=== PATIENT | male | born 1980 | race Caucasian/White ===

== ENCOUNTER 2019-07-20 13:55 | Emergency (ER) | payer BC, SELFPAY ==
--- NOTE | ~2019-07-20 | XR_ITS ---
XR abdomen/kub 1V 07/20/2019 16:04 Indication: Ureteral stone. Left flank pain. Procedure: KUB Comparison: CT dated 07/20/2019 Findings: Small distal left ureteral stone is identified, partially obscured by the sacrum. Bowel pat tern is nonobstructive. No acute osseous abnormality. Impression: 1: Distal left ureteral stone partially obscured by the sacrum. Reviewed, dictated and finalized at location A. Impression: 1: Distal left ureteral stone partially obscured by the sacrum.
--- NOTE | ~2019-07-20 | CT_ITS ---
EXAMINATION: CT abdomen pelvis wo con DATE: 07/20/2019 14:24 INDICATION: Left flank pain. Low back pain. TECHNIQUE: Computed tomography (CT) of the abdomen and pelvis was performed without intravenous contr ast. Automated exposure control and iterative reconstruction technique were employed. Exam dose: 110 1.81 mGy-cm total exam DLP. COMPARISON: None. FINDINGS: There is an approximately 4 mm left ureterovesical junction calculus with mild left hydrour eteronephrosis. No other urinary tract calculus and no right hydroureteronephrosis is detected. Hepatic steatosis. No hepatic, splenic, pancreatic, and adrenal space-occupying mass lesion. Probable approximately 6 cm right renal cyst. The gallbladder is present. No bile duct or pancreatic duct dilatation. Normal caliber of the abdominal aorta. No intraperitoneal or retroperitoneal or pelvic mass lesion or adenopathy or ascites. Normal appendix. Mild colonic diverticulosis. No CT evidence of diverticulitis. No bowel obstruction or intraperitonea l free air. Very small fat-containing umbilical hernia. Bilateral fat-containing inguinal hernias. Hemangioma of T12 vertebral body. IMPRESSION: 4 mm left ureterovesical junction calculus with mild left hydroureteronephrosis Hepatic steatosis Right renal cyst Mild colonic diverticulosis Reviewed, dictated and finalized at Location A. Reviewed, dictated and finalized at location A. IMPRESSION: 4 mm left ureterovesical junction calculus with mild left hydroure teronephrosis Hepatic steatosis Right renal cyst Mild colonic diverticulosis
[2019-07-20 14:00] VITALS: BP 137/90; PULSE 93; RESP 16; TEMP 36.1; O2SAT 97
--- NOTE | 2019-07-20 14:03 | ED.ABDPAIN ---
HPI - Abdominal Pain General Chief Complaint: Abdominal Pain Stated Complaint: left flank pain Time Seen by Provider: 07/20/19 13:59 Source: patient and RN notes reviewed Mode of arrival: other Limitations: no limitations History of Present Illness HPI narrative: Pt is a 39 y/o male who presents to the ED with c/o 10/10 sharp stabbing left flank pain that began this morning. Pt has a hx of kidney stones and he states that his pain is very similar to his episode of kidney stones. Pt took Tylenol this morning, but with no relief. Pt denies any aggravating factors. Pt also reports decreased urine output, but denies vomiting, hematuria, fever, chills, cough, and a sore throat. MD elicited complaint: flank pain Pertinent past history: kidney stones Onset (ago): hour(s) Pain Consistency: constant Location: L flank Severity: severe Pain scale (0-10): 10 Quality: stabbing and sharp Radiation: none Migration to: no migration Exacerbating factors: nothing Relieving factors: nothing Context: confirms history of similar episodes Associated symptoms: other (decreased urine output) Treatments prior to arrival: other (Tylenol) Related Data Allergies Allergy/AdvReac Type Severity Reaction Status Date / Time No Known Allergies Allergy Verified 07/20/19 14:06 Review of Systems Review of Systems: All systems reviewed & are unremarkable except as noted in HPI and below Constitutional: Constitutional: Denies chills and Denies fever(s) ENT: Denies sore throat Respiratory: Respiratory: Denies cough Gastrointestinal: Gastrointestinal: Denies vomiting Genitourinary: Genitourinary: Denies hematuria, Reports oliguria, Reports flank pain (left) and Reports other [facility] Past Medical History Medical History (Updated 07/21/19 @ 00:00 by Seth Villalpando) Kidney stone Surgical History Surgical History (Updated 07/20/19 @ 14:12 by Chrissy Stinson) Surgical history unknown Social History Social History Gender identity (if verbalized by the patient): Male Exam Const: General: no acute distress and well developed Orientation/consciousness: oriented to person, oriented to place, oriented to time and patient oriented x3 HENMT: Head: normocephalic Ears: external ears normal General nose exam: Normal external nose present Eyes: General: appearance normal, both eyes and all related structures Conjunctivae: conjunctivae normal Neck: Neck: normal visual inspection and full ROM Chest: Chest palpation & inspection: normal inspection of the chest and no tenderness Resp: Effort & Inspection: normal respiratory effort Auscultation: clear to auscultation bilaterally Cardio: Rate: regular rate Rhythm: regular rhythm GI: GI Palp: No abdominal tenderness and Yes Soft to palpation Skin: General skin exam: normal color and turgor normal Neuro: General: oriented to person, oriented to place, oriented to time and patient oriented x3 Cognition (Neuro): normal cognition Extrem: General: normal to inspection, full ROM and no pedal edema Psych: Appearance: grossly normal Mental Status: mental status grossly normal Affect: normal affect Course Vital Signs Vital signs: Vital Signs Temperature 36.1 C L 07/20/19 14:00 Pulse Rate 93 07/20/19 14:00 Respiratory Rate 16 07/20/19 14:00 Blood Pressure 137/90 07/20/19 14:00 Pulse Oximetry 97 07/20/19 14:00 Temperature 36.1 C L 07/20/19 14:00 Pulse Rate 81 07/20/19 17:28 Respiratory Rate 18 07/20/19 17:28 Blood Pressure 134/81 07/20/19 17:28 Pulse Oximetry 97 07/20/19 17:28 MDM - Abdominal Pain Lab Data Result diagrams: 07/20/19 14:32 07/20/19 14:32 Labs: Lab Results 07/20/19 07/20/19 07/20/19 Range/Units 14:32 14:32 16:21 WBC 9.5 (4.5-10.0) K/mm3 RBC 5.25 (4.6-6.20) M/mm3 Hgb 15.5 (14.0-18.0) g/dL Hct 46.1 (42.0-52.0) % MCV 87.8 (80-100) fl MCH 29.5 (26-34) pg MCHC 33.6
--- NOTE | 2019-07-20 14:17 | PC.NURSE ---
Pt taken to CT at this time
[2019-07-20 14:48] LABS: Basophils Absolute Auto 0.1 K/mm3 (0.0-0.1); Basophils Percent Auto 0.6 % (0.2-1.2); Eosinophils Percent Auto 0.3 % (0-4.4); Hematocrit 46.1 % (42.0-52.0); Hemoglobin 15.5 g/dL (14.0-18.0); Immature Granulocyte Absolute 0.04 K/mm3 (0.00-0.031); Immature Granulocyte Percent A 0.4 % (0-0.5); Lymphocytes Absolute Auto 1.17 K/mm3 (0.9-3.2); Lymphocytes Percent Auto 12.3 % (18.3-44.2); Mean Corpuscular HGB Conc 33.6 g/dl (32-36); Mean Corpuscular Hemoglobin 29.5 pg (26-34); Mean Corpuscular Volume 87.8 fl (80-100); Mean Platelet Volume 10.8 fl (7.4-10.4); Monocytes Absolute Auto 0.4 K/mm3 (0.1-0.6); Monocytes Percent Auto 4.6 % (2.6-8.5); Neutrophils Absolute Auto 7.8 K/mm3 (1.3-6.7); Neutrophils Percent Auto 81.8 % (45.5-73.1); Platelet Count Result 181 k/mm3 (150-375); Red Blood Count 5.25 M/mm3 (4.6-6.20); Red Cell Distribution Width 12.8 % (11.5-14.5); White Blood Count 9.5 K/mm3 (4.5-10.0)
[2019-07-20 14:58] LABS: Alanine Aminotransferase 44 U/L (4-50); Albumin Level 4.2 g/dL (3.5-5.1); Alkaline Phosphatase 69 U/L (38-126); Aspartate Amino Transferase 36 U/L (17-59); Bilirubin,Total 1.4 mg/dL (0.2-1.3); Blood Urea Nitrogen 21 mg/dL (9-20); Calcium 9.2 mg/dL (8.4-10.2); Carbon Dioxide 24 mmol/L (22-30); Chloride 106 mmol/L (98-107); Estimated CRCL calculation 94 ml/min; Estimated Glomerular Filt Rate > 60; Glucose 117 mg/dL (75-110); Potassium 4.3 mmol/L (3.4-5.0); Sodium 138 mmol/L (137-145)
[2019-07-20] MEDS: KETOROLAC 30 MG/ML VIAL (*BKC) IV PUSH (15:04)
[2019-07-20] MEDS: SODIUM CHLORIDE 0.9% IV 1,000 ML 999 ML IV CONT (15:04)
[2019-07-20 16:28] LABS: Add Urine Microscopic? YES; Appearance Urine Clear (Clear); Bacteria Urine Trace /hpf; Bilirubin Urine Negative (Negative); Blood Urine 1+ (Negative); Color Urine Yellow (Yellow); Glucose Urine UA Negative (Negative); Ketones Urine Negative (Negative); Leukocyte Esterase Ur Negative LEU/UL (Negative); Mucus Urine Rare /lpf; Nitrate Urine Negative (Negative); Protein Urine Negative (Negative); RBC Urine 21-50 /hpf (0-2); Specific Grav Ur 1.027 (1.001-1.035); Squamous Epithelial Cell Urine Rare /hpf (Few); Urobilinogen Urine Negative mg/dL (<2.0); WBC Urine 0-3 /hpf
[2019-07-20 17:28] VITALS: BP 134/81; PULSE 81; RESP 18; O2SAT 97
== END 2019-07-20 17:28 | disposition home or self-care (01) ==
PROVIDERS: Emergency Provider Emergency Medicine
DX: N20.1 Calculus of ureter (principal); K57.30 Diverticulosis of large intestine without perforation or abscess without bleeding; K76.0 Fatty (change of) liver, not elsewhere classified
CPT/HCPCS: 36415; 74018; 74176; 80053; 81001; 85025; 96361; 96374; 96375; 99284; J1885; J3010; J7030

== ENCOUNTER 2025-02-19 18:46 | Emergency (ER) | payer BC, SELFPAY ==
--- NOTE | ~2025-02-19 | CT_ITS ---
CT ABDOMEN AND PELVIS WITHOUT CONTRAST Clinical History: R/O kidney stone Comparison: CT 07/20/2019 Technique: Unenhanced axial images lung bases to symphysis pubis Coronal, sagittal reformats CT images acquired with automatic exposure control for dose reduction DLP: 332 mGy-cm Findings: Without intravenous contrast, sensitivity for detecting visceral parenchymal abnormalities decreased. Lung bases: Clear. Visualized heart and pericardium: Unremarkable. Liver: Steatosis. Gallbladder: Unremarkable. Spleen: Unremarkable. Pancreas: Unremarkable. Adrenal glands: Unremarkable. Kidneys: Right kidney- Hydronephrosis. Tiny intrarenal stones. 5 mm stone distal ureter. Cortical cyst. Left kidney- No hydronephrosis. No renal stones. Distal esophagus/stomach: Small hiatal hernia. Small bowel loops: Normal caliber and wall thickness. Colon: A few diverticula. Normal caliber and wall thickness. Normal RLQ appendix. Nodes: No enlarged nodes. Peritoneum: No ascites. No free intraperitoneal air. Urinary bladder: Unremarkable. Prostate: Unremarkable. Bones: No acute bony abnormality. T12 hemangioma. Soft tissues: Small inguinal hernias with fat. Unopacified abdominal aorta: No aneurysmal dilatation. IMPRESSION: 1. Right kidney hydronephrosis due to distal ureteral 5 mm stone. 2. Additional findings as above. Reviewed, dictated and finalized at location R.
[2025-02-19 19:27] VITALS: BP 151/87; PULSE 60; RESP 18; TEMP 36.6; O2SAT 98
[2025-02-19 23:57] VITALS: BP 112/69; PULSE 81; RESP 20; TEMP 36.8; O2SAT 98
[2025-02-20] VITALS (15 sets, daily range): BP systolic 123–128; BP diastolic 83–92; PULSE 64–90; RESP 0–24; O2SAT 91–97
--- NOTE | 2025-02-20 00:33 | ED.BACK ---
HPI - Back Pain/Injury General Chief Complaint: Back Pain/Injury <Stephanie Heath APRN - Last Filed: 02/20/25 02:46> Stated Complaint: R FLANK/ABD PAIN SINCE 1814 TODAY <Stephanie Heath APRN - Last Filed: 02/20/25 02:46> Time Seen by Provider: 02/20/25 00:11 <Stephanie Heath APRN - Last Filed: 02/20/25 02:46> History of Present Illness HPI Narrative: Patient is a 44-year-old male who presents to the ER with complaints of right flank pain. He reports he started experiencing this pain approximately 3 weeks ago. Patient reports he was trying to ignore it but today it worsened. He reports he has a history of kidney stones with his last one being 7 years ago. Patient denies any other medical history relevant to this ER visit. He endorses intermittent abdominal pain when he feels the stone move. Patient denies any urinary symptoms, recent fevers, or hematuria. <Stephanie Heath APRN - Last Filed: 02/20/25 02:46> Related Data Allergies/Adverse Reactions: Allergies Allergy/AdvReac Type Severity Reaction Status Date / Time No Known Allergies Allergy Verified 02/19/25 19:30 <Stephanie Heath APRN - Last Filed: 02/20/25 02:46> Review of Systems Review of Systems: All systems reviewed & are unremarkable except as noted in HPI and below <Stephanie Heath APRN - Last Filed: 02/20/25 02:46> [facility] Past Medical History Medical History: Medical History Kidney stone <Stephanie Heath APRN - Last Filed: 02/20/25 02:46> Surgical History Surgical History: Surgical History Surgical history unknown <Stephanie Heath APRN - Last Filed: 02/20/25 02:46> Social History Social History: Social History Gender identity (if verbalized by the patient): Male <Stephanie Heath FIELD OPERATIONS SUPERVISOR - Last Filed: 02/20/25 02:46> Exam Narrative: GENERAL: Well appearing, well-nourished, non-toxic, in no acute distress. HEAD: Normocephalic, atraumatic. NECK: Supple. No adenopathy, no masses. RESPIRATORY: Airway patent, respirations nonlabored. Clear to auscultation bilaterally, no rales, rhonchi, wheezing. CARDIOVASCULAR: Regular rate and rhythm without murmurs, rubs, or gallops. Peripheral pulses 2+ and equal bilaterally. + right CVA tenderness ABDOMINAL: Soft, nontender, nondistended, no hepatosplenomegaly. Normoactive BS. MUSCULOSKELETAL: Moves all extremities. Strength/ROM intact without gross deformities. SKIN: Warm, dry, normal color. No rashes. NEURO: A&O X3. Speech clear. Cranial nerves II-XII intact. No ataxic movements. PSYCHIATRIC: Appropriate mood and affect. Normal interaction. <Stephanie Heath, FIELD OPERATIONS SUPERVISOR - Last Filed: 02/20/25 02:46> Course Vital Signs Vital signs: Vital Signs Temperature 97.8 F 02/19/25 19:27 Pulse Rate 60 02/19/25 19:27 Respiratory Rate 18 02/19/25 19:27 Blood Pressure 151/87 H 02/19/25 19:27 Pulse Oximetry 98 02/19/25 19:27 Oxygen Delivery Room Air 02/19/25 19:27 Temperature 98.3 F 02/19/25 23:57 Pulse Rate 81 02/19/25 23:57 Respiratory Rate 20 02/19/25 23:57 Blood Pressure 112/69 02/19/25 23:57 Pulse Oximetry 98 02/19/25 23:57 Oxygen Delivery Room Air 02/19/25 19:27 <Stephanie Heath, FIELD OPERATIONS SUPERVISOR - Last Filed: 02/20/25 02:46> Vital Signs Temperature 97.8 F 02/19/25 19:27 Pulse Rate 60 02/19/25 19:27 Respiratory Rate 18 02/19/25 19:27 Blood Pressure 151/87 H 02/19/25 19:27 Pulse Oximetry 98 02/19/25 19:27 Oxygen Delivery Room Air 02/19/25 19:27 Temperature 98.3 F 02/19/25 23:57 Pulse Rate 81 02/19/25 23:57 Respiratory Rate 20 02/19/25 23:57 Blood Pressure 112/69 02/19/25 23:57 Pulse Oximetry 98 02/19/25 23:57 Oxygen Delivery Room Air 02/19/25 19:27 <Long Thornton, - Last Filed: 02/20/25 03:01> MDM - Back Pain/Injury MDM Narrative Medical decision making narrative: Patient is a 44-year-old male who presents to the ER with complaints of right flank pain. He reports he started experiencing this pain approximately 3 weeks ago. Patient reports he was trying to ignore it but today it worsened. He reports he has a history of kidney stones with his last one being 7 years ago. Patient denies any other medical history relevant to this ER visit. He endorses intermittent abdominal pain when he feels the stone move. Patient denies any urinary symptoms, recent fevers, or hematuria. Labs Ordered: CBC, CMP, UA Imaging Ordered: CT abdomen pelvis Medications Ordered: 1 L normal saline IV bolus, Zofran 4 mg IV, morphine 4 mg IV 0300-Care signed out to Dr. Thornton pending CT scan results. <Stephanie Heath, FIELD OPERATIONS SUPERVISOR - Last Filed: 02/20/25 02:46> Patient is a 44-year-old male who presents to the ER with complaints of right flank pain. He reports he started experiencing this pain approximately 3 weeks ago. Patient reports he was trying to ignore it but today it worsened. He reports he has a history of kidney stones with his last one being 7 years ago. Patient denies any other medical history relevant to this ER visit. He endorses intermittent abdominal pain when he feels the stone move. Patient denies any urinary symptoms, recent fevers, or hematuria. Labs Ordered: CBC, CMP, UA Imaging Ordered: CT abdomen pelvis Medications Ordered: 1 L normal saline IV bolus, Zofran 4 mg IV, morphine 4 mg IV Results: Diagnosis: Risks: HEART score, PECARN score, CURB-65 score Consults: CT abdomen pelvis without contrast reveals right hydroureteronephrosis with 4 5 mm calculus in the distal right ureter/UPJ. No bowel obstruction or inflammation. Normal appendix. Urology consulted. On reassessment patient is resting comfortably. No acute distress, notes that this pain is well controlled, will p.o. challenge the patient. Patient ordered Flomax and a urine strainer. I spoke with Urology on-call Dr. Colin who agrees with plan of care for urine strainer, Flomax, Toradol, Zofran, follow-up with urology in 1 week, strict return precautions. Patient was reassessed at the bedside. No changes in physical exam. Patient is in no acute distress. Patient tolerating p.o.. The patient has remained stable throughout the entire ED visit. Counseled patient regarding diagnostic results and potential diagnosis. Anticipatory guidance provided. Patient instructed to follow up with Urology in 1 week. Patient counseled on: false reassurance from an emergency department evaluation; no current evidence of a medical emergency; return immediately for any new, recurrent, worsening, concerning, or refractory symptoms. Patient prescribed Flomax, [place], Toradol, Zofran. Prescription sent to preferred pharmacy. Medications discussed with patient. Additional verbal and printed discharge instructions were given and discussed with the patient. Patient verbally acknowledges understanding of condition and discharge instructions. All questions were answered to the patient's satisfaction. Patient is in agreement with the plan of care. The patient is stable for discharge and was discharged without incident. <Long Thornton, - Last Filed: 02/20/25 03:01> Differential Diagnosis Differential diagnosis: Likely lumbar radiculopathy, sciatica, strain of lumbar region, renal colic and pyelonephritis <Stephanie Heath APRN - Last Filed: 02/20/25 02:46> Lab Data Attestation: I reviewed the patient's lab results. <Stephanie Heath APRN - Last Filed: 02/20/25 02:46> Result diagrams: 02/20/25 00:37 02/20/25 00:37 <Stephanie Heath APRN - Last Filed: 02/20/25 02:46> Labs: Lab Results 02/20/25 02/20/25 Range/Units 00:14 00:37 WBC 10.2 H (4.5-10.0) K/mm3 RBC 5.24 (4.6-6.20) M/mm3 Hgb 15.5 (14.0-18.0) g/dL Hct 45.8 (42.0-52.0) % MCV 87.4 (80-100) fl MCH 29.6 (26-34) pg MCHC 33.8 (32-36) g/dl RDW 12.8 (11.5-14.5) % Plt Count 192 (150-375) k/mm3 MPV 10.2 (7.4-10.4) fl Immature Gran % (Auto) 0.3 (0-0.5) % Neut % (Auto) 83.1 H (45.5-73.1) % Lymph % (Auto) 10.5 L (18.3-44.2) % [place] % (Auto) 5.5 (2.6-8.5) % Eos % (Auto) 0.1 (0-4.4) % Baso % (Auto) 0.5 (0.2-1.2) % Lymph # (Auto) 1.07 (0.9-3.2) K/mm3 [place] # (Auto) 0.6 (0.1-0.6) K/mm3 Eos # (Auto) 0.0 (0-0.3) K/mm3 Baso # (Auto) 0.1 (0.0-0.1) K/mm3 Abs Immat Gran (auto) 0.03 (0.00-0.031) K/mm3 Absolute Neuts (auto) 8.5 H (1.3-6.7) K/mm3 Absolute Nucleated RBC 0.000 (0.0-0.012) K/mm3 Nucleated RBC % 0.0 (0.0-0.2) % Sodium 137 (137-145) mmol/L Potassium 4.3 (3.4-5.0) mmol/L Chloride 105 (98-107) mmol/L Carbon Dioxide 24 (22-30) mmol/L Anion Gap 8 (4-12) mmol/L BUN 20 (9-20) mg/dL Creatinine 0.98 (0.7-1.3) mg/dL Estim Creat Clear Calc 108 ml/min Estimated GFR > 60 (59 - ) Glucose 111 H (65-110) mg/dL Calcium 9.1 (8.4-10.2) mg/dL Total Bilirubin 2.2 H (0.2-1.3) mg/dL AST 34 (17-59) U/L ALT 36 (6-50) U/L Alkaline Phosphatase 60 (38-126) U/L Total Protein 7.1 (6.3-8.2) g/dL Albumin 4.2 (3.5-5.1) g/dL Urine Color Yellow (Yellow) Urine Appearance Cloudy H (Clear) Urine pH 6.0 (5.0-9.0) Ur Specific [place] 1.013 (1.001-1.035) Urine Protein Trace (Negative) mg/dL Urine Glucose (UA) Negative (Negative) mg/dL Urine Ketones Trace H (Negative) mg/dL Ur Blood (Man) 3+ H (Negative) Urine Nitrate Negative (Negative) Urine Bilirubin Negative (Negative) Urine Urobilinogen 1.0 (<2.0) mg/dL Leukocyte Esterase Rfl Negative (Negative) [place]O/UL Urine RBC 21-50 H (0-2) /hpf Urine WBC 0-5 (0-3) /hpf Ur Squamous Epith Cells None seen (Few) /hpf Urine Bacteria None seen /hpf Urine Casts 3-5 <Stephanie Heath, FIELD OPERATIONS SUPERVISOR - Last Filed: 02/20/25 02:46> Lab Results 02/20/25 02/20/25 Range/Units 00:14 00:37 WBC 10.2 H (4.5-10.0) K/mm3 RBC 5.24 (4.6-6.20) M/mm3 Hgb 15.5 (14.0-18.0) g/dL Hct 45.8 (42.0-52.0) % MCV 87.4 (80-100) fl MCH 29.6 (26-34) pg MCHC 33.8 (32-36) g/dl RDW 12.8 (11.5-14.5) % Plt Count 192 (150-375) k/mm3 MPV 10.2 (7.4-10.4) fl Immature Gran % (Auto) 0.3 (0-0.5) % Neut % (Auto) 83.1 H (45.5-73.1) % Lymph % (Auto) 10.5 L (18.3-44.2) % [place] % (Auto) 5.5 (2.6-8.5) % Eos % (Auto) 0.1 (0-4.4) % Baso % (Auto) 0.5 (0.2-1.2) % Lymph # (Auto) 1.07 (0.9-3.2) K/mm3 [place] # (Auto) 0.6 (0.1-0.6) K/mm3 Eos # (Auto) 0.0 (0-0.3) K/mm3 Baso # (Auto) 0.1 (0.0-0.1) K/mm3 Abs Immat Gran (auto) 0.03 (0.00-0.031) K/mm3 Absolute Neuts (auto) 8.5 H (1.3-6.7) K/mm3 Absolute Nucleated RBC 0.000 (0.0-0.012) K/mm3 Nucleated RBC % 0.0 (0.0-0.2) % Sodium 137 (137-145) mmol/L Potassium 4.3 (3.4-5.0) mmol/L Chloride 105 (98-107) mmol/L Carbon Dioxide 24 (22-30) mmol/L Anion Gap 8 (4-12) mmol/L BUN 20 (9-20) mg/dL Creatinine 0.98 (0.7-1.3) mg/dL Estim Creat Clear Calc 108 ml/min Estimated GFR > 60 (59 - ) Glucose 111 H (65-110) mg/dL Calcium 9.1 (8.4-10.2) mg/dL Total Bilirubin 2.2 H (0.2-1.3) mg/dL AST 34 (17-59) U/L ALT 36 (6-50) U/L Alkaline Phosphatase 60 (38-126) U/L Total Protein 7.1 (6.3-8.2) g/dL Albumin 4.2 (3.5-5.1) g/dL Urine Color Yellow (Yellow) Urine Appearance Cloudy H (Clear) Urine pH 6.0 (5.0-9.0) Ur Specific [place] 1.013 (1.001-1.035) Urine Protein Trace (Negative) mg/dL Urine Glucose (UA) Negative (Negative) mg/dL Urine Ketones Trace H (Negative) mg/dL Ur Blood (Man) 3+ H (Negative) Urine Nitrate Negative (Negative) Urine Bilirubin Negative (Negative) Urine Urobilinogen 1.0 (<2.0) mg/dL Leukocyte Esterase Rfl Negative (Negative) [place]/UL Urine RBC 21-50 H (0-2) /hpf Urine WBC 0-5 (0-3) /hpf Ur Squamous Epith Cells None seen (Few) /hpf Urine Bacteria None seen /hpf Urine Casts 3-5 <Long Thornton DO - Last Filed: 02/20/25 03:01> Discharge Plan Discharge Clinical Impression: Ureterolithiasis <Stephanie Heath APRN - Last Filed: 02/20/25 02:46> Patient Disposition: Home <Stephanie Heath APRN - Last Filed: 02/20/25 02:46> Condition: Stable <Stephanie Heath APRN - Last Filed: 02/20/25 02:46> Instructions: Antibiotic Form, Kidney Stones (ED), How to Strain Your Urine (ED), Hydronephrosis (ED), Ureteral Stones (ED) <Stephanie Heath APRN - Last Filed: 02/20/25 02:46> Additional Instructions: Take the pain medications as needed as prescribed, Zofran as needed for nausea, Flomax as prescribed, norco as needed for breakthrough pain, strain all urine, stay well hydrated, follow-up with urology in 1 week for reassessment, return immediately to the emergency department for any new or concerning symptoms especially fever, intractable pain despite medications, intractable nausea vomiting, or any emergent concerns for life, limb, eyesight. <Stephanie Heath APRN - Last Filed: 02/20/25 02:46> Patient Language: Irish <Stephanie Heath APRN - Last Filed: 02/20/25 02:46> Prescriptions: New ketorolac 10 mg tablet 10 mg PO Q8H PRN (Reason: pain) 5 Days Qty: 15 0RF Rx Instructions: maximum total duration of 5 days from all oral, intranasal, or parenteral formulations hydrocodone-acetaminophen 5-325 mg tablet 1 tablet PO Q6H MDD 4 tabs PRN (Reason: pain) 3 Days Qty: 12 0RF ondansetron 4 mg tablet,disintegrating 4 mg PO Q8H PRN (Reason: nausea and vomiting) Qty: 14 0RF tamsulosin [Flomax] 0.4 mg capsule 0.4 mg PO DAILY 30 Days Qty: 30 0RF No Action hydrocodone-acetaminophen [[place]] 5-325 mg tablet 1 tablet PO Q6H PRN (Reason: pain) Qty: 20 0RF tamsulosin [Flomax] 0.4 mg capsule 0.4 mg PO DAILY Qty: 10 0RF <Stephanie Heath APRN - Last Filed: 02/20/25 02:46> Follow-up/Referrals: Que Colin MD [Physician, Urology] - 1 Week PHYSICIAN NOT ON STAFF,NONSTAFF [Non-Staff] <Stephanie Heath APRN - Last Filed: 02/20/25 02:46> Time of Disposition: 03:00 <Stephanie Heath APRN - Last Filed: 02/20/25 02:46> 03:00 <Long Thornton DO - Last Filed: 02/20/25 03:01>
[2025-02-20] MEDS: SODIUM CHLORIDE 0.9% IV 1,000 ML 999 ML IV CONT (00:36)
[2025-02-20] MEDS: ONDANSETRON INJ 4 MG/2 ML VIAL IV PUSH (00:37)
[2025-02-20] MEDS: MORPHINE SULFATE (*CRX) 4 MG/ML INJ IV PUSH (00:37)
[2025-02-20 00:41] LABS: Add Urine Microscopic? YES; Appearance Urine Cloudy (Clear); Glucose Urine UA Negative (Negative); Leukocyte Esterase Ur Negative LEU/UL (Negative); Nitrate Urine Negative (Negative); Specific Grav Ur 1.013 (1.001-1.035)
--- OUTSIDE RECORDS SUMMARY | 2025-02-20 00:42 | XMS_ITS | Encounter Summary ---
Author Organization [facility] Address [address] [place] [address] Phone Care Team Providers Care Telegraph Office Route Aide Name Role Phone Justin Moreno MD Primary Care Provider [phone] Encounter Details Date Type Department Care Team (Late st Contact Info) Description 01/18/2025 Results Follow-Up [facility] [address] [place] [address] [place] [id number] [place] [address] XR Shoulder Right 2 or More Views, MRI Shoulder Right WO Contrast Social History Tobacco Use Types Packs/Day Years Used Date Smoking Tobacco: Never Smokeless Tobacco: Never Alcohol Use Standard Drinks/Week Comments Yes 1 (1 standard drink = 0.6 oz pur e alcohol) AUDIT-C Answer Date Recorded Q1: How often do you have a drink containing alc ohol? Monthly or less 09/21/2023 Q2: How many drinks containi ng alcohol do you have on a typical day when you are drinking? 1 or 2 09/21/2023 Q3: How often do you have si x or more drinks on one occasion? Less than monthly 09/21/2023 PHQ-2 Answer Date Recorded PHQ-2 Total Score (If total score is 3 or more points, staff should administer the PHQ-9) 1 04/07/2023 Personal Safety Answer Date Recorded Have you ever been in or are you currently in a harmful physical or emotional relationship or is someone making you feel afraid or unsafe? 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
--- OUTSIDE RECORDS SUMMARY | 2025-02-20 00:42 | XMS_ITS | Clinical Summary ---
Author Organization [facility] Care Team Providers Care Hearing Screen Coordinator Name Role Phone Unavailable Primary Care Provider Unavailabl e Social History Tobacco Use Types Packs/Day Years Used Date Smoking Tobacco: Never Assessed Sex and Gender Information Value Date Recorded Sex Assigned at Not on file Legal Sex Male 9:49 AM CDT Gender Identity Not on file Sexual Orientation Not on file Plan of Treatment Health Maintenance Due Date Last Done Comments Hepatitis C Virus (HCV) Screening 1980 TdaP Immunization 1980 Hepatitis B Immunization (1 of 3 - 19+ 3-dose series) 1997 Cologuard 2023 Colonoscopy 2023 Colorectal Cancer Screening 2023 Immunochemical Fecal Occult Blood 2023 Influenza Immunization (#1) 2025 SARS-COV-2 Immunization ( season) 2025 07/14/2020, 06/16/2020 Respiratory Syncytial Virus (RSV) Immunization (Adult) (1 - 1-dose 75+ series) 2053 Human Papillomavirus (HPV) Immunization Aged Out No longer eligible b ased on patient's age to complete this topic Meningococcal Immunization (ACWY) Aged Out No longer eligible b ased on patient's age to complete this topic Pneumococcal Immunization Combined Aged Out No longer eligible b ased on patient's age to complete this topic Rotavirus Immunization Aged Out No lo nger eligible based on patient's age to complete this topic
--- OUTSIDE RECORDS SUMMARY | 2025-02-20 00:42 | XMS_ITS | Clinical Summary ---
Author Organization [facility] Address [address] [place] [address] Care Team Providers Care Foam Molder Name Role Phone Justin Moreno MD Primary Care Provider [phone] Allergies No known active allergies Medications semaglutide (Wegovy) 2.4 mg/0.75 mL auto-injectorInd ications:Routine physical examination,Alte red glucose metabolism Inject 0.75 mL (2.4 mg total) under the skin every 7 days 3 mL 11 05/12/2024 Active terbinafine (LamiSIL) 250 mg tablet Take 1 tablet (250 mg total) by mouth daily 90 tablet 1 05/23/2024 Active ergocalciferol (VITAMIN D) 50,000 unit capsuleIndicatio ns:Routine physical examination TAKE 1 CAPSULE EVERY 30 DAYS 3 capsule 3 08/08/2024 Active typhoid (VIVOTIF) 2 billion unit capsule live vaccineIndicatio ns:Typhoid Vaccination Take 1 capsule by mouth every other day 4 capsule 01/17/2025 Active Active Problems Problem Noted Date Diagnosed Date Travel advice encounter 07/22/2023 Assessment & Plan (01/17/2025 9:47 AM CDT): going to [place] and needs travel vaccination including yellow fever, typhoid and standard vaccinations. Will check on malaria needs. Fatty liver 04/07/2023 Assessment & Plan (01/18/2025 7:56 AM CDT): Working on weight loss and will check labs in a few months. Assessment & Plan (04/07/2023 7:55 PM [employer] LOAD [employer] UNLOAD): Checking lft's and encouraged diet, exercise and weight loss. DARIEN (obstructive sleep apnea) 01/07/2023 Assessment & Plan (01/18/2025 7:55 AM CDT): Considering trying a mouthguard since intolerant of CPAP previously. Right elbow pain 08/25/2022 Assessment & Plan (08/25/2022 4:28 PM CDT): Consistent with tennis elbow. Encouraged exercises and change in activities as possible Pain of right hand 08/25/2022 Assessment & Plan (08/25/2022 4:29 PM CDT): Has been bothersome without swelling Encourage OT if ongoing symptoms. Morbid obesity with BMI of 40.0-44.9, adult 08/09 Assessment & Plan (01/18/2025 7:55 AM CDT): continue with Enrico and working on diet and exercise. Encouraged weight lifting as well. Assessment & Plan (04/07/2023 7:55 PM [employer] LOAD [employer] UNLOAD): Working on diet and exercise. Assessment & Plan (08/25/2022 4:33 PM CDT): Continue with luis eduardo . This is well tolerated. He is doing well on this without complications Hypersomnia, persistent 03/11/2021 Assessment & Plan (01/17/2025 9:46 AM CDT): Should get a follow-up sleep study at some point. Assessment & Plan (05/12/2024 4:19 PM [employer] LO[employer] UNLOAD): Tolerable symptoms Assessment & Plan (05/15/2021 9:26 AM [employer] LO[employer] UNLOAD): Ongoing Awaiting sleep study given suspicion of DARIEN as etiology Further direction pending labs completed this AM as well Assessment & Plan (03/11/2021 2:33 PM CDT): Multifactorial is getting little sleep, poor diet No psych causes to attribute Referral to Sleep Medicine for further evaluation of DARIEN Labs today as detailed below for further eval Low libido 03/11/2021 Assessment & Plan (05/12/2024 4:20 PM [employer] LO[employer] UNLOAD): Checking t level Assessment & Plan (03/11/2021 2:33 PM CDT): Open to checking testosterone level, TSH, CMP, vitamin-D & A1c for DM Conservative management including healthier lifestyle, improved sleep pattern recommended Chronic right shoulder pain 03/05/2020 Assessment & Plan (01/17/2025 9:47 AM CDT): Severe and progressive despite home physical therapy for over 6 weeks. Obtaining x-ray again and MRI to follow. Pending this orthopedic referral as well. Routine physical examination 10/19/2018 Assessment & Plan (01/18/2025 7:55 AM CDT): Will get Routine labs in near future. Return in the spring for full physical Assessment & Plan (05/12/2024 4:06 PM [employer] LO[employer] UNLOAD): Checking labs per routine and pertaining to problems listed . HM items reviewed and updated . No new concerns. Assessment & Plan (04/07/2023 4:33 PM [employer] LO[employer] UNLOAD): Checking labs per routine and pertaining to problems listed . HM items reviewed and updated . No new concerns. Immunizations are utd Assessment & Plan (03/28/2022 6:52 AM [employer] LO[employer] UNLOAD): Checking labs per routine and pertaining to problems listed . HM items reviewed and updated . No new concerns. He is not interested in further COVID vaccines or flu shot. Assessment & Plan (03/11/2021 2:34 PM CDT): Checking labs per routine and pertaining to problems listed . HM items reviewed and updated . No new concerns. Assessment & Plan (03/05/2020 8:45 AM CDT): Checking labs per routine and pertaining to problems listed . HM items reviewed and updated . No new concerns. Assessment & Plan (10/19/2018 8:35 AM CDT): Checking labs per routine and pertaining to problems listed . HM items reviewed and updated . No new concerns. Altered glucose metabolism 10/19/2018 Assessment & Plan (01/17/2025 9:46 AM CDT): Gradually improving with use of Wegovy. Will check A1c and CHEM panel near future. Working on weight lifting as well. Assessment & Plan (05/12/2024 4:12 PM [employer] LO[employer] UNLOAD): Checking hba1c now and continue with wegovy Assessment & Plan (04/07/2023 7:54 PM [employer] LO[employer] UNLOAD): Checking hba1c in follow up Assessment & Plan (03/28/2022 6:52 AM [employer] LO[employer] UNLOAD): Working on better diet and exercise. Fortunately no signs of diabetes on today's A1c Assessment & Plan (03/11/2021 2:37 PM CDT): Impaired Fasting Glucose is unchanged Counseled on regular aerobic exercise, including walkig, jogging, targeting 10K- 20K step equivalent daily. and Counseled on low carbohydrate diet Follow up at the next regular appointment CMP, A1c in the week pending further recommendatons Assessment & Plan (03/05/2020 8:44 AM CDT): Checking labs now and further eval , working on diet and weight loss. Assessment & Plan (10/19/2018 8:38 AM CDT): Checking labs no other new complaints. Overweight 10/16/2017 Assessment & Plan (04/07/2023 7:54 PM [employer] LOAD [employer] UNLOAD): Will start mounjaro given concerns regarding blood sugars/bardales Will then monitor in follow up in 4-6 months Assessment & Plan (03/28/2022 6:52 AM [employer] LO[employer] UNLOAD): Discussed focus of his dietary efforts. Checking labs to confirm no complications thus far. Assessment & Plan (07/03/2021 3:07 PM [employer] LO[employer] UNLOAD): No dm related complaints Working on diet and exercise Assessment & Plan (03/11/2021 2:34 PM CDT): Obesity is unchanged. Discussed the patient's BMI. The BMI is above average; no BMI management plan is appropriate. General weight loss/lifestyle modification strategies discussed (elicit support from others; identify saboteurs; non-food rewards, etc). Counseled on dietary options including mediterranean diet and intermittent fasting Assessment & Plan (03/05/2020 8:45 AM CDT): Work on diet and exercise , checkiong labs. Assessment & Plan (10/19/2018 8:36 AM CDT): He needs to work on weight loss. He plans to work on cutting back on sweets and carbs . Assessment & Plan (10/16/2017 9:04 AM CDT): Working with diet and exericse. Low carb/some intermittant fasting Resolved Problems Problem Noted Date Diagnosed Date Resolved Date Dysthymia 03/28/2022 05/12/2024 Assessment & Plan (08/25/2022 4:30 PM CDT): Encouraged he work with counseling and consider rx. Assessment & Plan (03/28/2022 6:51 AM [employer] LO[employer] UNLOAD): Has been refractory. Causing some attention and focus issues. More importantly like a motivation for better lifestyle. Trial of Wellbutrin after long discussion about options to treat. Complicated grief 07/03/2021 05/12/2024 Assessment & Plan (03/28/2022 6:52 AM [employer] LO[employer] UNLOAD): He is looking for a therapist however it has been very difficult to connect with previous therapists he has tried Assessment & Plan (07/03/2021 3:07 PM [employer] LO[employer] UNLOAD): Continue sertraline for now. Encouraged he get counseling. FMLA forms as listed. Anxiety 05/15/2021 05/12/2024 Assessment & Plan (04/07/2023 7:55 PM [employer] LO[employer] UNLOAD): Continue current regimen of sertraline/buproprion. Assessment & Plan (07/03/2021 3:07 PM [employer] LOAD [employer] UNLOAD): Doing ok despite loss of his brother. Monitor for panic symptoms Assessment & Plan (05/15/2021 9:25 AM [employer] LO[employer] UNLOAD): Psychological condition is improving with treatment. Continue current treatment regimen. Regular aerobic exercise. Referral to psychological counseling. Psychological condition will be reassessed 6 months. Counseling resources provided Arm numbness 03/05/2020 03/11/2021 Assessment & Plan (03/05/2020 8:46 AM CDT): This in the C7-C8 area . No weakness. Trial of pt and prednisone. MRI only if progressive sx /weakness. Immunity to measles determin ed by serologic test 10/19/2018 03/05/2020 Chronic left shoulder pain 10/16/2017 1 05/11/2020 Overview (10/16/2017): Three months of pain. Will get x rays and trial of pt. Likely this rot cuff tendonitis. Assessment & Plan (03/05/2020 8:45 AM CDT): Likely rotator cuff tendonitis vs tear. Working on exercises from here. Assessment & Plan (10/19/2018 8:37 AM CDT): Improved with use Testicular lump 10/16/2017 10/19/2018 Overview (10/16/2017): Resolved today on exam . Will self monitor and if any concerns that this has returned then ultrasound Irritable mood 03/24/2014 03/05/2020 Assessment & Plan (10/19/2018 8:37 AM CDT): Continue sertraline and this Is going fine. No new complicaitons. Assessment & Plan (10/16/2017 9:06 AM CDT): This well treated in the past with sertraline and he is interested in starting again Gastroesophageal reflux disease 01/01/2010 10/16/2017 Encounters Date Type Department Care Team Description 01/30/2025 7:31 AM CDT - 01/30/2025 11:59 PM CDT Hospital Encounter [facility] [address] [place] [id number] Chronic right shoulder pain Discharge Disposition: Discharge to home or self care 01/18/[id number] [place] [address] [place] [id number] Justin Moreno MD 01/18/2025 Results Follow-Up [facility] [id number] [place] [address] [address] [place] [address] Justin Moreno MD XR Shoulder Right 2 or More Views, MRI Shoulder Right WO Contrast 01/17/2025 9:13 AM CDT - 01/17/2025 11:59 PM CDT Hospital Encounter [facility] [address] [place] [address] Chronic right shoulder pain Discharge Disposition: Discharge to home or self care 01/17/2025 8:00 AM CDT Office Visit [facility] [id number] [place] [address] [address] [place] [address] Justin Moreno MD Chronic right shoulder pain (Primary Dx); Altered glucose metabolism; Hypersomnia, persistent; DARIEN (obstructive sleep apnea); Morbid obesity with BMI of 40.0-44.9, adult (HCC); Fatty liver; Routine physical examination; Need for immunization against yellow fever; Skin lesions from Last 3 Months Immunizations Immunization Administration Dates Next Due Influenza, Quadrivalent, Spl it, Preservative Free, Intramuscular 03/05/2020 Tdap 10/16/2017,05/11/2006 Surgical History Surgery Date Site/Laterality Comments [place] ESOPHAGOGASTRODUODENOSCOP Y TRANSORAL DIAGNOSTIC Diagnostic Esophagogastroduodenoscopy - (Added by BEE Conv) Medical History Medical History Date Comments Personal history of urinary calculi Nephrolithiasis - (Added by TW Conv) Eosinophilic esophagitis Eosinop hilic esophagitis - (Added by BEE Conv) Sleep apnea Family History Medical History Relation Name Comments No Known Problems Brother 1 Rheum arthritis Brother 2 Testicular cancer Brother 2 Coronary artery disease Father from at 67 years of age Coronary artery disease Father's Brother at 51 Valvular heart disease Mother No Known Problems Sister Relation Name Status Comments Brother 1 Alive Brother 2 Alive Father from and n o risk factors Father's Brother Mother Alive Sister Alive Social History Tobacco Use Types Packs/Day Years [...] on file Legal Sex Male 12:57 PM [employer] UN[employer] Gender Identity Not on file Sexual Orientation Not on file Obstetrics History Last Filed Vital Signs Vital Sign Reading Time Taken Comments Blood Pressure 118/83 01/17/2025 8:08 AM CDT Pulse 66 01/17/2025 8:08 AM CDT Temperature 36.2 C (97.2 F) 09/21/2023 11:16 AM CDT Respiratory Rate 18 09/21/2023 11:3 6 AM CDT Oxygen Saturation 97% 01/17/2025 8:08 AM CDT Inhaled Oxygen Concentration - - Weight 127.4 kg (280 lb 12.8 oz) 01/17/2025 8:08 AM CDT Height 175.3 cm (5' 9) 05/12/2024 3:31 PM [employer] LO[employer] UNLOAD Body Mass Index 41.47 05/12/2024 3:31 PM [employer] LO[employer] UNLOAD Plan of Treatment Health Maintenance Due Date Last Done Comments Hepatitis C Screening 1978 Hepatitis B Screening 1996 Pneumococcal vaccine <65 (1 of 2 - PCV) 1997 Depression Screening 04/07/2024 04/07/2023, 03/11/20 21 Covid-19 Vaccine (3 - season) 2025 07/14/2020, 06/16/2020 Influenza Vaccine (#1) 2025 03/05/2020 Regular Well Visit/Exam 18-64 05/12/2025 05/12/2024, 04/07/2023, 03/27/2022, Additional history exists DTaP/Tdap/Td Vaccine (3 - Td or Tdap) 10/17/2027 10/16/2017, 05/11/2006 Colon Cancer Screening-Colonoscopy 09/20/2033 09/21/2023 HPV Vaccines Aged Out No longer eligi ble based on patient's age to complete this topic Procedures Procedure Name Priority Date/Time Associated Diagnosis Comments MRI SHOULDER RIGHT WO CONTRAST Schedule Routine, Read Routine (OP Routine) 01/30/2025 8:14 AM CDT Chronic right shoulder pain XR SHOULDER RIGHT 2 OR MORE VIEWS Schedule Routine, Read Routine (OP Routine) 01/17/2025 9:26 AM CDT Chronic right shoulder pain COLONOSCOPY 09/21/2023 10:28 AM CDT from Last 3 Months or Most Recently Relevant to Health Maintenance Results * MRI Shoulder Right WO Contrast (01/30/2025 8:14 AM CDT) Anatomical Region Laterality Modality Upper Extremities Right Magnetic Reson ance 01/30/2025 8:59 AM CDT Impressions 01/30/2025 8:59 AM CDT 1.Right supraspinatus and infraspinatus tendinopathy with 16 mm, deep partial-thickness, undersurface tear of the anterior supraspinatus tendon. 2. Right subscapularis tendinopathy with 5 mm partial-thickness, undersurface tear of the tendon. 3. Mild right acromioclavicular osteoarthritis and mild subacromial-subdeltoid bursitis. Electronically signed by: Antonio Melendez M.D. Narrative 01/30/2025 8:59 AM CDT EXAMINATION: MRI right shoulder without contrast HISTORY: Undergoing right shoulder pain for at least 2 years FINDINGS: MR examination of the right shoulder was done with a local coil. Axial, oblique coronal, and oblique sagittal short TR/TE and fast spin echo pulse sequences were performed. Right shoulder radiographs from 01/17/2025 and ultrasound from 03/12/2020 were reviewed. There is a type 2 acromion. The coracoacromial ligament is normal. There is mild acromioclavicular osteoarthritis. There is mild subacromial-subdeltoid bursitis. There is subscapularis tendinopathy with a 5 mm, partial-thickness undersurface tear of the insertion. There is supraspinatus and infraspinatus tendinopathy with high-grade, partial-thickness, undersurface tear of the anterior supraspinatus footprint measuring 16 mm anteroposterior. There is no full-thickness tendon tear or retraction. There is a myotendinous junction cyst within the supraspinatus and small ganglion cyst in the rotator interval. There is mild fatty infiltration of the supraspinatus and superior subscapularis muscles. The other rotator cuff muscles have normal bulk and signal. There is degeneration of the superior glenoid labrum. The articular cartilage is normal. The long head biceps tendon is normal. There is no fracture or joint effusion. Procedure Note Antonio Melendez MD - 01/30/2025 EXAMINATION: MRI right shoulder without contrast HISTORY: Undergoing right shoulder pain for at least 2 years FINDINGS: MR examination of the right shoulder was done with a local coil. Axial, oblique coronal, and oblique sagittal short TR/TE and fast spin echo pulse sequences were performed. Right shoulder radiographs from 01/17/2025 and ultrasound from 03/12/2020 were reviewed. There is a type 2 acromion. The coracoacromial ligament is normal. There is mild acromioclavicular osteoarthritis. There is mild subacromial-subdeltoid bursitis. There is subscapularis tendinopathy with a 5 mm, partial-thickness undersurface tear of the insertion. There is supraspinatus and infraspinatus tendinopathy with high-grade, partial-thickness, undersurface tear of the anterior supraspinatus footprint measuring 16 mm anteroposterior. There is no full-thickness tendon tear or retraction. There is a myotendinous junction cyst within the supraspinatus and small ganglion cyst in the rotator interval. There is mild fatty infiltration of the supraspinatus and superior subscapularis muscles. The other rotator cuff muscles have normal bulk and signal. There is degeneration of the superior glenoid labrum. The articular cartilage is normal. The long head biceps tendon is normal. There is no fracture or joint effusion. IMPRESSION: 1.Right supraspinatus and infraspinatus tendinopathy with 16 mm, deep partial-thickness, undersurface tear of the anterior supraspinatus tendon. 2. Right subscapularis tendinopathy with 5 mm partial-thickness, undersurface tear of the tendon. 3. Mild right acromioclavicular osteoarthritis and mild subacromial-subdeltoid bursitis. Electronically signed by: Antonio Melendez M.D. Justin Moreno MD IM MRI PROCEDURES Final Res ult * XR Shoulder Right 2 or More Views (01/17/2025 9:26 AM CDT) Anatomical Region Laterality Modality Upper Extremities, Shoulder Right Comp uted Radiography 01/17/2025 9:28 AM CDT Impressions 01/17/2025 9:28 AM CDT Calcific rotator cuff tendinopathy. Electronically signed by: Richard Young MD [facility] 01/17/2025 9:28 AM CDT EXAMINATION: XR SHOULDER RIGHT 2 OR MORE VIEWS HISTORY: Right shoulder pain FINDINGS: Comparison dated 03/12/2020. Calcific rotator cuff tendinopathy. Normal alignment. No fracture. The glenohumeral joint is normal. Mild right acromioclavicular osteoarthritis. Mild soft tissue swelling. Procedure Note Richard Young MD - 01/17/2025 EXAMINATION: XR SHOULDER RIGHT 2 OR MORE VIEWS HISTORY: Right shoulder pain FINDINGS: Comparison dated 03/12/2020. Calcific rotator cuff tendinopathy. Normal alignment. No fracture. The glenohumeral joint is normal. Mild right acromioclavicular osteoarthritis. Mild soft tissue swelling. IMPRESSION: Calcific rotator cuff tendinopathy. Electronically signed by: Richard Young MD us Justin Moreno MD IMG XR PROCEDURES Final Resu lt * Colonoscopy (09/21/2023 10:28 AM CDT) Anatomical Region Laterality Modality Other Narrative Procedure Note Liz Thomson MD - 09/21/2023 10:28 AM CDT [facility] Patient Name: Melecio Maguire Procedure Date: 09/21/2023 10:28 AM Date of : 1980 Admit Type: Outpatient Age: 43 Gender: Male Attending MD: Liz Thomson M.D. Room: [facility] ENDOSCOPY ROOM 4 Note Status: Finalized Procedure: Colonoscopy Indications: Screening for colorectal malignant neoplasm, Thisis the patient's first colonoscopy Referring MD: Justin Moreno M.D. Providers: Liz Thomson M.D., Minnie Dyer MD Medicines: Monitored Anesthesia Care Complications: No immediate complications. Estimated Blood Loss: Estimated blood loss: none. Procedure: Pre-Anesthesia Assessment: - Immediately prior to administration ofmedications, the patient was re-assessed for adequacy to receive sedatives. - The risks and benefits of the procedure and the sedation options and risks were discussed with the patient. All questions were answered and informed consent was obtained. The benefits, risks and alternatives of theprocedure and sedation were discussed and informed consentwas obtained. All questions were answered. Please referto the signed informed consent document in the medical record. The scope was passed under direct vision.The CF HQ [id number] endoscope was introducedthrough the anus and advanced to the cecum, identified by appendiceal orifice and ileocecal valve. The colonoscopy was performed without difficulty. The patient tolerated the procedure well. The qualityof the bowel preparation was evaluated using the BBPS (Tiff Bowel Preparation Scale) with scores of:Right Colon = 2 (minor amount of residual staining, small fragments of stool and/or opaque liquid, but mucosa seen well), Transverse Colon = 3 (entire mucosaseen well with no residual staining, small fragments of stool or opaque liquid) and Left Colon = 3 (entire mucosa seen well with no residual staining, small fragments of stool or opaque liquid). The totalBBPS score equals 8. The quality of the bowelpreparation was good. The bowel preparation used waspolyethylene glycol (PEG) via split dose instruction. Thequality of the bowel preparation was good. Findings: A 3 mm polyp was found in the ascending colon. The polyp was sessile. The polyp was removed with a jumbo cold forceps. Resection andretrieval were complete. Two sessile polyps were found in the sigmoid colon and descendingcolon. The polyps were 3 to 4 mm in size. These polyps were removed with acold snare. Resection and retrieval were complete. Small non-bleeding internal hemorrhoids were found on retroflexion. Impression: - One 3 mm polyp in the ascending colon, removedwith a jumbo cold forceps. Resected and retrieved. - Two 3 to 4 mm polyps in the sigmoid colon and inthe descending colon, removed with a cold snare.Resected and retrieved. - Small non-bleeding internal hemorrhoids werefound on retroflexion. Recommendation: - Repeat colonoscopy for surveillance based on pathology results. Attending Participation: I was present and participated during the entire procedure, including non-bingham portions. Electronically signed by Liz Thomson MD Liz Thomson M.D. 09/21/2023 11:18:06 AM . Number of Addenda: 0 Note Initiated On: 09/21/2023 10:28 AM us Liz Thomson MD ENDOSCOPY PROCEDURES Final Res ult from Last 3 Months or Most Recently Relevant to Health Maintenance Insurance [employer] OOS BLUE ACC CHOICE [employer] CHOICE OOS BLUE ACC CHOICE OOS BLUE ACC CHOICE OOS Advance Directives For more information, please contact: [phone] * Full Code (Latest Code Status on File) Date Activated Date Inactivated Comments 09/21/2023 9:42 AM 09/21/2023 4:59 PM Care Teams Foam Molder Relationship Specialty [place] [id number] [address] PCP - General Internal Medicine 01/17/25
[2025-02-20 00:47] LABS: Hematocrit 45.8 % (42.0-52.0); Hemoglobin 15.5 g/dL (14.0-18.0); Immature Granulocyte Percent A 0.3 % (0-0.5); Lymphocytes Absolute Auto 1.07 K/mm3 (0.9-3.2); Mean Corpuscular HGB Conc 33.8 g/dl (32-36); Mean Corpuscular Hemoglobin 29.6 pg (26-34); Mean Corpuscular Volume 87.4 fl (80-100); Nucleated Red Blood Cells Absolute Auto 0.000 K/mm3 (0.0-0.012); Nucleated Red Blood Cells Perc 0.0 % (0.0-0.2); Platelet Count Result 192 k/mm3 (150-375); Red Blood Count 5.24 M/mm3 (4.6-6.20); White Blood Count 10.2 K/mm3 (4.5-10.0)
[2025-02-20 01:01] LABS: Alanine Aminotransferase 36 U/L (6-50); Albumin Level 4.2 g/dL (3.5-5.1); Alkaline Phosphatase 60 U/L (38-126); Anion Gap 8 mmol/L (4-12); Aspartate Amino Transferase 34 U/L (17-59); Bilirubin,Total 2.2 mg/dL (0.2-1.3); Blood Urea Nitrogen 20 mg/dL (9-20); Calcium 9.1 mg/dL (8.4-10.2); Carbon Dioxide 24 mmol/L (22-30); Chloride 105 mmol/L (98-107); Estimated CRCL calculation 108 ml/min; Estimated Glomerular Filt Rate > 60; Glucose 111 mg/dL (65-110); Potassium 4.3 mmol/L (3.4-5.0); Sodium 137 mmol/L (137-145); Total Protein 7.1 g/dL (6.3-8.2)
[2025-02-20] MEDS: TAMSULOSIN HCL 0.4 MG CAPSULE PO (03:10)
== END 2025-02-20 03:15 | disposition home or self-care (01) ==
PROVIDERS: Registered Nurse; Emergency Provider Student in an Organized Health Care Education/Training Program
DX: N20.1 Calculus of ureter (principal); Z87.442 Personal history of urinary calculi
CPT/HCPCS: 36415; 74176; 80053; 81001; 85025; 96361; 96374; 96375; 99284; A9270; J2270; J2405; J7030